=== PATIENT | female | born 1930 | race Caucasian/White ===

== ENCOUNTER 2018-03-30 01:54 | Inpatient (IN) | payer OTHER, MEDICARE ==
--- NOTE | 2018-03-30 02:57 | PDOC ---
History of Present Illness - General Chief Complaint: Rectal Bleed Stated Complaint: RECTAL BLEED Time Seen by Provider: 03/30/18 02:57 Past History - Travel Traveled outside of the country in the last 30 days: No Close contact w/someone who was outside of country & ill: No - Past Medical History Allergies/Adverse Reactions: Allergies Allergy/AdvReac Type Severity Reaction Status Date / Time No Known Allergies Allergy Verified 03/30/18 02:15 Home Medications: Ambulatory Orders Alendronate Sodium [Binosto] 70 mg PO WEEKLY 03/30/18 Atenolol [Tenormin] 25 mg PO DAILY 03/30/18 Atorvastatin Ca [Lipitor] 10 mg PO HS 03/30/18 Furosemide 20 mg PO DAILY 03/30/18 Levothyroxine [Synthroid -] 50 mcg PO DAILY 03/30/18 Nifedipine [Nifedipine ER] 60 mg PO DAILY 03/30/18 Solifenacin Succinate [Vesicare -] 10 mg PO DAILY 03/30/18 Warfarin Na [Coumadin] 1 mg PO ONCE 03/30/18 Warfarin Na [Coumadin] 4 mg PO DAILY 03/30/18 Anemia: Yes COPD: No HTN: Yes Hypercholesterolemia: Yes - Immunization History Immunization Up to Date: Yes - Suicide/Smoking/Psychosocial Hx Smoking Status: No Smoking History: Unknown if ever smoked Have you smoked in the past 12 months: No Number of Cigarettes Smoked Daily: 0 Information on smoking cessation initiated: No Hx Alcohol Use: No Drug/Substance Use Hx: No Substance Use Type: None Hx Substance Use Treatment: No Review of Systems - Review of Systems Able to Perform ROS?: Yes Is the patient limited Tanzanian proficient: No Constitutional: No: Symptoms Reported, See HPI, Chills, Diaphoresis, Fever, Loss of Appetite, Malaise, Night Sweats, Weakness, Weight Stable, Unintentional Wgt. Loss, Unexplained wgt Loss, Other HEENTM: No: Symptoms Reported, See HPI, Eye Pain, Blurred Vision, Tearing, Recent change in vision, Double Vision, Cataracts, Ear Pain, Ocular Prothesis, Ear Discharge, Nose Pain, Nose Congestion, Tinnitus, Nose Bleeding, Hearing Loss , Throat Pain, Throat Swelling, Mouth Pain, Dental Problems, Difficulty Swallowing, Mouth Swelling, Other Respiratory: No: Symptoms reported, See HPI, Cough, Orthopnea, Shortness of Breath, SOB with Exertion, SOB at Rest, Stridor, Wheezing, Productive cough, Hemoptysis, Other ABD/GI: Yes: Diarrhea, Rectal Bleeding, Abdominal cramping, Tarry Stools : No: Symptoms Reported, See HPI, Burning, Dysuria, Discharge, Frequency, Flank Pain, Hematuria, Incontinence, Pain, Urgency, Testicular Mass, Testicular Swelling, Lesions, Testicular Pain, Other Musculoskeletal: Yes: Muscle Weakness, Joint Stiffness. No: Symptoms Reported, See HPI, Back Pain, Gout, Joint Pain, Joint Swelling, Muscle Pain, Neck Pain, Other Integumentary: Yes: Bruising. No: Symptoms Reported, See HPI, Change in Color, Change in Hair/Nails, Dryness, Erythema, Flushing, Lesions, Lumps, Pallor, Pruritus, Rash, Sweating, Other Neurological: No: Symptoms reported, See HPI, Headache, Numbness, Paresthesia, Pre-Existing Deficit, Seizure, Tingling, Tremors, Weakness, Unsteady Gait, Ataxia, Dizziness, Other Psychiatric: No: Anxiety, Depression, Frequent Crying, Stressors, Sleep Pattern Change, Emotional Problems, Mood Swings, Change in Appetite, Other Hematologic/Lymphatic: Yes: Easy Bruising. No: Symptoms Reported, See HPI, Anemia, Blood Clots, Easy Bleeding, Bleeding Diathesis, Lymph Node Abnormalities , Swollen Glands, Other *Physical Exam - Vital Signs Last Vital Signs Temp Pulse Resp BP Pulse Ox 98.0 F 70 20 121/57 96 03/30/18 02:03 03/30/18 02:03 03/30/18 02:03 03/30/18 02:03 03/30/18 02:03 - Physical Exam General Appearance: Yes: Nourished, Appropriately Dressed. No: Apparent Distress HEENT: positive: EOMI, BOBBY, Normal ENT Inspection, Normal Voice, Symmetrical, TMs Normal, Pharynx Normal Neck: positive: Trachea midline, Supple Respiratory/Chest: positive: Lungs Clear, Normal Breath Sounds. negative: Respiratory Distress, Accessory Muscle Use Cardiovascular: positive: Regular Rhythm, Regular Rate, S1, S2 Female Pelvic Exam: positive: normal external exam. negative: discharge, lesions, Bartholin mass Gastrointestinal/Abdominal: positive: Normal Bowel Sounds, Flat, Soft. negative : Organomegaly, Pulsatile Mass Rectal Exam: positive: heme positive stool. negative: heme negative stool, normal exam Musculoskeletal: positive: Normal Inspection, CVA Tenderness Extremity: positive: Normal Capillary Refill, Normal Inspection, Normal Range of Motion, Pelvis Stable Integumentary: positive: Normal Color, Dry, Warm Neurologic: positive: out of town collection clerk II-XII NML intact, Fully Oriented, Alert, Normal Mood/ Affect, Normal Response ED Treatment Course - LABORATORY CBC & Chemistry Diagram: 03/30/18 03:41 03/30/18 03:41 Medical Decision Making - Medical Decision Making 03/30/18 06:36 Pt has ahd copious diarrrhea and bloody stool at home. In the ER she has bloody diaper. TRANSPORTATION PLANNER exam reveals that the blood is not coming from the vagina. Pt has guaiac positive stool and pt has INR of 3.57. We will hold a dose of coumadin today. Pt is stable hemodynamically; HB/HCT stable and she will be admitted to med surg for GI bleed. Hospitalist aware. *DC/Admit/Observation/Transfer Diagnosis at time of Disposition: Gastrointestinal bleed - Discharge Dispostion Condition at time of disposition: Guarded Decision to Admit order: Yes - Referrals - Patient Instructions - Post Discharge Activity
[2018-03-30 03:59] LABS: BASO % 0.4 % (0-2.0); EOS % 0.1 % (0-4.5); HEMATOCRIT 42.7 % (32.4-45.2); HEMOGLOBIN 13.9 GM/dL (10.7-15.3); LYMPH % 7.8 % (8-40); MCH 26.7 pg (25.7-33.7); MCHC 32.6 g/dl (32.0-36.0); MEAN CELL VOLUME 81.7 fl (80-96); MEAN PLT VOLUME 9.2 fl (7.5-11.1); NEUT % 86.7 % (42.8-82.8); PLATELET COUNT 373 K/MM3 (134-434); RBC 5.22 M/mm3 (3.60-5.2); RDW 14.8 % (11.6-15.6); WHITE BLOOD COUNT 21.8 K/mm3 (4.0-10.0)
[2018-03-30 04:25] LABS: INR 3.57 (0.83-1.09); PROTHROMBIN TIME (PATIENT) 40.3 SEC (9.7-13.0)
[2018-03-30 04:26] LABS: ALBUMIN 3.1 g/dl (3.4-5.0); ANION GAP 7 MMOL/L (8-16); BILIRUBIN,TOTAL 0.4 mg/dL (0.2-1.0); BLOOD UREA NITROGEN 23 mg/dL (7-18); CALCIUM 9.1 mg/dL (8.5-10.1); CHLORIDE 107 mmol/L (98-107); CO2 28 mmol/L (21-32); GLUCOSE,RANDOM 125 mg/dL (74-106); POTASSIUM 4.2 mmol/L (3.5-5.1); SGOT/AST 16 U/L (15-37); SGPT/ALT 16 U/L (12-78); SODIUM 142 mmol/L (136-145); TOT PROT 7.1 g/dl (6.4-8.2)
[2018-03-30 04:27] LABS: ALK PHOS 195 U/L (45-117)
[2018-03-30 06:01] LABS: ACANTHOCYTES 0; ANISOCYTOSIS 0; HELMET CELLS 0; HOWELL-JOLLY BODIES 0; MACROCYTOSIS 0; OVALOCYTE 0; PLATELET ESTIMATE INCREASED; ROULEAU 0; SICKELED CELLS 0; TARGET CELLS 0; TEAR DROP CELLS 0; TOXIC GRANULATION 0
--- NOTE | 2018-03-30 06:15 | HP ---
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 Who presents to the ED with her daughter for BRBPR and diarrhea x 1 day. Patient reports having a BM then seeing blood in the toilet. Patient denies straining, constipation, abdominal pain/cramping. Patient denies fever, chills, cough, dizziness, CP, palpitations, N/V, melena, hematuria, dysuria. History Source: Patient, Family Member Limitations to Obtaining History: No Limitations - Past Medical History Cardiovascular: Yes: Deep Vein Thrombosis, HTN, Hyperlipdemia. No: AFIB, CAD, CHF Gastrointestinal: Yes: Constipation, Diverticulosis, GI Bleed (resolved) Heme/Onc: Yes: Anemia (Hx) - Past Surgical History Additional Past Surgical History: [place] Filter - Smoking History Smoking history: Unknown if ever smoked Have you smoked in the past 12 months: No Aproximately how many cigarettes per day: 0 - Alcohol/Substance Use Hx Alcohol Use: No - Social History History of Recent Travel: No Home Medications - Allergies Allergies/Adverse Reactions: Allergies Allergy/AdvReac Type Severity Reaction Status Date / Time No Known Allergies Allergy Verified 03/30/18 02:15 - Home Medications Home Medications: Ambulatory Orders Alendronate Sodium [Binosto] 70 mg PO WEEKLY 03/30/18 Atenolol [Tenormin] 25 mg PO DAILY 03/30/18 Atorvastatin Ca [Lipitor] 10 mg PO HS 03/30/18 Furosemide 20 mg PO DAILY 03/30/18 Levothyroxine [Synthroid -] 50 mcg PO DAILY 03/30/18 Nifedipine [Nifedipine ER] 60 mg PO DAILY 03/30/18 Warfarin Na [Coumadin] 1 mg PO ONCE 03/30/18 Warfarin Na [Coumadin] 4 mg PO DAILY 03/30/18 Family Disease History - Family Disease History Family History: Unable to Obtain Review of Systems - Review of Systems Constitutional: reports: Weakness Eyes: reports: No Symptoms HENT: reports: No Symptoms Neck: reports: No Symptoms Cardiovascular: reports: No Symptoms Respiratory: reports: No Symptoms Gastrointestinal: reports: Diarrhea, Rectal Bleeding (BRB). denies: Abdominal Pain, Constipation, Melena, Nausea, Vomiting, Vomiting Blood Genitourinary: reports: No Symptoms. denies: Flank Pain, Frequency, Hematuria, Vaginal Bleeding Breasts: reports: No Symptoms Reported Musculoskeletal: reports: No Symptoms Integumentary: reports: No Symptoms Neurological: reports: No Symptoms Endocrine: reports: No Symptoms Hematology/Lymphatic: reports: No Symptoms Psychiatric: reports: No Symptoms Physical Examination Vital Signs: Vital Signs Temperature 98.0 F 03/30/18 02:03 Pulse Rate 70 03/30/18 02:03 Respiratory Rate 20 03/30/18 02:03 Blood Pressure 121/57 03/30/18 02:03 O2 Sat by Pulse Oximetry (%) 96 03/30/18 02:03 Constitutional: Yes: No Distress, Calm, Obese Eyes: Yes: WNL, Conjunctiva Clear, EOM Intact, PERRL HENT: Yes: WNL, Atraumatic, Normocephalic Neck: Yes: WNL, Supple, Trachea Midline Cardiovascular: Yes: WNL, Regular Rate and Rhythm, S1, S2 Respiratory: Yes: WNL, Regular, CTA Bilaterally Gastrointestinal: Yes: Soft, Abdomen, Obese, Hyperactive Bowel Sounds ...Rectal Exam: Yes: Guaiac Positive Renal/: Yes: WNL Breast(s): Yes: WNL Musculoskeletal: Yes: Muscle Weakness Extremities: Yes: WNL Edema: No Peripheral Pulses WNL: Yes Neurological: Yes: WNL, Alert, Oriented, Cran Nerves II-XII Intact ...Motor Strength: WNL Psychiatric: Yes: WNL, Alert, Oriented Labs: CBC, BMP 03/30/18 03:41 03/30/18 03:41 Intake & Output 03/27/18 03/28/18 03/29/18 03/30/18 23:59 23:59 23:59 23:59 Weight 65.771 kg Laboratory Results - last 24 hr 03/30/18 03/30/18 03/30/18 03:41 03:41 03:41 WBC 21.8 H RBC 5.22 H Hgb 13.9 Hct 42.7 D MCV 81.7 MCH 26.7 MCHC 32.6 RDW 14.8 Plt Count 373 MPV 9.2 D Absolute Neuts (auto) 18.9 H Neutrophils % 86.7 H Neutrophils % (Manual) 87.4 H Band Neutrophils % 0.0 Lymphocytes % 7.8 L D Lymphocytes % (Manual) 8.7 Monocytes % 5.0 Monocytes % (Manual) 3 L Eosinophils % 0.1 D Eosinophils % (Manual) 0.0 Basophils % 0.4 D Basophils % (Manual) 0.0 Myelocytes % (Man) 0 Promyelocytes % (Man) 0 Blast Cells % (Manual) 0 Nucleated RBC % 0 Metamyelocytes 1 Hypochromia 0 Toxic Granulation 0 Dohle Bodies 0 Platelet Estimate Increased Polychromasia 0 Poikilocytosis 0 Basophilic Stippling 0 Anisocytosis 0 Microcytosis 0 Macrocytosis 0 Spherocytes 0 Sickle Cells 0 Target Cells 0 Tear Drop Cells 0 Ovalocytes 0 Stomatocytes 0 Helmet Cells 0 [place] Bodies 0 [place] Rings 0 Miles Cells 0 Acanthocytes (Spur) 0 Rouleaux 0 Fragmented RBCs 0 Schistocytes 0 PT with INR INR PTT (Actin FS) 49.2 H Sodium 142 Potassium 4.2 Chloride 107 Carbon Dioxide 28 Anion Gap 7 L BUN 23 H Creatinine 1.0 Creat Clearance w eGFR 52.33 Random Glucose 125 H Calcium 9.1 Total Bilirubin 0.4 AST 16 ALT 16 Alkaline Phosphatase 195 H Total Protein 7.1 Albumin 3.1 L Stool Occult Blood Blood Type Antibody Screen 03/30/18 03/30/18 03/30/18 03:41 03:41 03:41 WBC RBC Hgb Hct MCV MCH MCHC RDW Plt Count MPV Absolute Neuts (auto) Neutrophils % Neutrophils % (Manual) Band Neutrophils % Lymphocytes % Lymphocytes % (Manual) Monocytes % Monocytes % (Manual) Eosinophils % Eosinophils % (Manual) Basophils % Basophils % (Manual) Myelocytes % (Man) Promyelocytes % (Man) Blast Cells % (Manual) Nucleated RBC % Metamyelocytes Hypochromia Toxic Granulation Dohle Bodies Platelet Estimate Polychromasia Poikilocytosis Basophilic Stippling Anisocytosis Microcytosis Macrocytosis Spherocytes Sickle Cells Target Cells Tear Drop Cells Ovalocytes Stomatocytes Helmet Cells [place] Bodies [place] Rings Inez Cells Acanthocytes (Spur) Rouleaux Fragmented RBCs Schistocytes PT with INR 40.30 H INR 3.57 H PTT (Actin FS) Sodium Potassium Chloride Carbon Dioxide Anion Gap BUN Creatinine Creat Clearance w eGFR Random Glucose Calcium Total Bilirubin AST ALT Alkaline Phosphatase Total Protein Albumin Stool Occult Blood Positive Blood Type O POSITIVE Antibody Screen Negative Imaging - Results Chest X-ray: Pending EKG: Image Reviewed (NSR no ST or TWI) Problem List - Problems (1) Gastrointestinal bleed Assessment/Plan: - stable - Likely diverticular vs medication vs hemorrhoid - Admit to Tele - stool occult positive - Appreciate GI Consult - IVF - NPO - Monitor vitals Code(s): K92.2 - GASTROINTESTINAL HEMORRHAGE, UNSPECIFIED (2) Bright red blood per rectum Assessment/Plan: - See Above Code(s): K62.5 - HEMORRHAGE OF ANUS AND RECTUM (3) HTN (hypertension) Assessment/Plan: - stable - Monitor BP - Continue home meds - Monitor renal function Code(s): I10 - ESSENTIAL (PRIMARY) HYPERTENSION (4) Hyperlipemia Assessment/Plan: - stable - Continue home med Code(s): E78.5 - HYPERLIPIDEMIA, UNSPECIFIED (5) Leukocytosis Assessment/Plan: - Likely secondary to inflammatory process vs infection - Will order Blood Cultures x2, Lactic Acid - Monitor CBC - Will hold off on ABX for now Code(s): D72.829 - ELEVATED WHITE BLOOD CELL COUNT, UNSPECIFIED Assessment/Plan 87 y/o woman Admitted to Telemetry for GI Bleeding for further evaluation of their emergent condition. Plan: FEN D51/2NS@42ml/hr Replete lytes prn NPO DVT ppx OOB SCDs Hold AC secondary to GI Bleeding Code Status: Full Code Dispo: Requires Inpatient Care Visit type - Emergency Visit Emergency Visit: Yes ED Registration Date: 03/30/18 Care time: The patient presented to the Emergency Department on the above date and was hospitalized for further evaluation of their emergent condition. - New Patient This patient is new to me today: Yes Date on this admission: 03/30/18 - Critical Care Critical Care patient: No Hospitalist Screening - Colonoscopy Questionnaire Colonoscopy Questionnaire: Colonoscopy Questionnaire - Patient: 50 - 75 years old and never had a screening colonoscopy: No History of colon or rectal polyps, or CA: No History of IBD, Crohn's disease or UC: No History of abdominal radiation therapy as a child: No - Relative: 1 with colon or rectal CA, or polyps at age 60 or younger: No Colon or rectal CA diagnosed at age 45 or younger: No Multiple relatives with colon or rectal CA: No - Outcome: Screening Result: Negative Screen
[2018-03-30] MEDS: DEXTROSE 5%-0.45% SALINE 1,000 ML IV SCH (06:40)
--- NOTE | 2018-03-30 10:42 | CON.GI ---
Consult Consult Specialty:: GI Referred by:: Radha Bhagat Reason for Consultation:: rectal bleeding - History of Present Illness Chief Complaint: Rectal bleeding, diarrhea History of Present Illness: 87 y.o. woman developed diarrhea 2 days ago. Last night she passed blood with her diarrhea. She has been on warfarin and admits that she is overdue for a check of her INR with her PCP, Dr Hayes. Was found to have INR>3.5 in early hours of this morning. Hct 42.7%, WBC 21,8. Denies fever, chills, recent antibiotic use. CBC,CMP WBC 21.8 K/mm3 (4.0-10.0) H 03/30/18 03:41 RBC 5.22 M/mm3 (3.60-5.2) H 03/30/18 03:41 Hgb 13.9 GM/dL (10.7-15.3) 03/30/18 03:41 Hct 42.7 % (32.4-45.2) D 03/30/18 03:41 MCV 81.7 fl (80-96) 03/30/18 03:41 MCH 26.7 pg (25.7-33.7) 03/30/18 03:41 MCHC 32.6 g/dl (32.0-36.0) 03/30/18 03:41 RDW 14.8 % (11.6-15.6) 03/30/18 03:41 Plt Count 373 K/MM3 (134-434) 03/30/18 03:41 MPV 9.2 fl (7.5-11.1) D 03/30/18 03:41 Absolute Neuts (auto) 18.9 K/mm3 (1.5-8.0) H 03/30/18 03:41 Neutrophils % 86.7 % (42.8-82.8) H 03/30/18 03:41 Neutrophils % (Manual) 87.4 % (42.8-82.8) H 03/30/18 03:41 Band Neutrophils % 0.0 % 03/30/18 03:41 Lymphocytes % 7.8 % (8-40) L D 03/30/18 03:41 Lymphocytes % (Manual) 8.7 % (8-40) 03/30/18 03:41 Monocytes % 5.0 % (3.8-10.2) 03/30/18 03:41 Monocytes % (Manual) 3 % (3.8-10.2) L 03/30/18 03:41 Eosinophils % 0.1 % (0-4.5) D 03/30/18 03:41 Eosinophils % (Manual) 0.0 % (0-4.5) 03/30/18 03:41 Basophils % 0.4 % (0-2.0) D 03/30/18 03:41 Basophils % (Manual) 0.0 % (0-2.0) 03/30/18 03:41 Myelocytes % (Man) 0 % (0-2) 03/30/18 03:41 Promyelocytes % (Man) 0 % (0-2) 03/30/18 03:41 Blast Cells % (Manual) 0 % (0-0) 03/30/18 03:41 Nucleated RBC % 0 % (0-0) 03/30/18 03:41 Metamyelocytes 1 % (0-2) 03/30/18 03:41 Hypochromia 0 03/30/18 03:41 Toxic Granulation 0 03/30/18 03:41 Dohle Bodies 0 03/30/18 03:41 Platelet Estimate Increased 03/30/18 03:41 Polychromasia 0 03/30/18 03:41 Poikilocytosis 0 03/30/18 03:41 Basophilic Stippling 0 03/30/18 03:41 Anisocytosis 0 03/30/18 03:41 Microcytosis 0 03/30/18 03:41 Macrocytosis 0 03/30/18 03:41 Spherocytes 0 03/30/18 03:41 Sickle Cells 0 03/30/18 03:41 Target Cells 0 03/30/18 03:41 Tear Drop Cells 0 03/30/18 03:41 Ovalocytes 0 03/30/18 03:41 Stomatocytes 0 03/30/18 03:41 Helmet Cells 0 03/30/18 03:41 [place] Bodies 0 03/30/18 03:41 [place] Rings 0 03/30/18 03:41 Miles Cells 0 03/30/18 03:41 Acanthocytes (Spur) 0 03/30/18 03:41 Rouleaux 0 09/02/18 03:41 Fragmented RBCs 0 03/30/18 03:41 Schistocytes 0 03/30/18 03:41 Sodium 142 mmol/L (136-145) 03/30/18 03:41 Potassium 4.2 mmol/L (3.5-5.1) 03/30/18 03:41 Chloride 107 mmol/L (98-107) 03/30/18 03:41 Carbon Dioxide 28 mmol/L (21-32) 03/30/18 03:41 Anion Gap 7 MMOL/L (8-16) L 03/30/18 03:41 BUN 23 mg/dL (7-18) H 03/30/18 03:41 Creatinine 1.0 mg/dL (0.55-1.02) 03/30/18 03:41 Creat Clearance w eGFR 52.33 (>60) 03/30/18 03:41 Random Glucose 125 mg/dL (74-106) H 03/30/18 03:41 Lactic Acid 1.5 mmol/L (0.0-2.0) 03/30/18 06:43 Calcium 9.1 mg/dL (8.5-10.1) 03/30/18 03:41 Total Bilirubin 0.4 mg/dL (0.2-1.0) 03/30/18 03:41 AST 16 U/L (15-37) 03/30/18 03:41 ALT 16 U/L (12-78) 03/30/18 03:41 Alkaline Phosphatase 195 U/L (45-117) H 03/30/18 03:41 Total Protein 7.1 g/dl (6.4-8.2) 03/30/18 03:41 Albumin 3.1 g/dl (3.4-5.0) L 03/30/18 03:41 - Past Medical History Cardio/Vascular: Yes: Deep Vein Thrombosis, HTN, Hyperlipdemia. No: AFIB, CAD, CHF Gastrointestinal: Yes: Constipation, Diverticulosis, GI Bleed (resolved) - Alcohol/Substance Use Hx Alcohol Use: No - Smoking History Smoking history: Unknown if ever smoked Have you smoked in the past 12 months: No Aproximately how many cigarettes per day: 0 - Social History History of Recent Travel: No Home Medications - Allergies Allergies/Adverse Reactions: Allergies Allergy/AdvReac Type Severity Reaction Status Date / Time No Known Allergies Allergy Verified 03/30/18 02:15 - Home Medications Home Medications: Ambulatory Orders Alendronate Sodium [Binosto] 70 mg PO WEEKLY 03/30/18 Atenolol [Tenormin] 25 mg PO DAILY 03/30/18 Atorvastatin Ca [Lipitor] 10 mg PO HS 03/30/18 Furosemide 20 mg PO DAILY 03/30/18 Levothyroxine [Synthroid -] 50 mcg PO DAILY 03/30/18 Nifedipine [Nifedipine ER] 60 mg PO DAILY 03/30/18 Warfarin Na [Coumadin] 1 mg PO ONCE 03/30/18 Warfarin Na [Coumadin] 4 mg PO DAILY 03/30/18 Physical Exam-GI Vital Signs: Vital Signs Temperature 98.5 F 03/30/18 07:12 Pulse Rate 88 03/30/18 07:12 Respiratory Rate 19 03/30/18 07:12 Blood Pressure 124/68 03/30/18 07:12 O2 Sat by Pulse Oximetry (%) 96 03/30/18 02:03 ...Rectal Exam: Yes: Other (No masses. Small amount of stool admixed with blood. ) Labs: CBC, BMP 03/30/18 03:41 03/30/18 03:41 INR, PTT INR 3.57 (0.83-1.09) H 03/30/18 03:41 Problem List - Problems (1) Bright red blood per rectum Code(s): K62.5 - HEMORRHAGE OF ANUS AND RECTUM Assessment/Plan Lower GI bleed, probably diverticular, in context of supratherapeutic anticoagulation. Would repeat CBC as the elevated WBC is definitely of concern. Surprisingly she has no fever, pain, cough, or localizing findings to suggest infection other than the diarrhea which has subsided (last episode about 2 a.m. by her and her daughter's report - it is now 11 a.m.) Will allow low residue diet, also agree with holding warfarin.
[2018-03-30 12:14] VITALS: BMI 27.2
[2018-03-30 13:32] LABS: BASO % 0.6 % (0-2.0); EOS % 0.5 % (0-4.5); HEMATOCRIT 35.7 % (32.4-45.2); HEMOGLOBIN 11.3 GM/dL (10.7-15.3); LYMPH % 17.9 % (8-40); MCH 25.9 pg (25.7-33.7); MCHC 31.6 g/dl (32.0-36.0); MEAN PLT VOLUME 8.6 fl (7.5-11.1); PLATELET COUNT 289 K/MM3 (134-434); RBC 4.35 M/mm3 (3.60-5.2); RDW 14.9 % (11.6-15.6); WHITE BLOOD COUNT 14.8 K/mm3 (4.0-10.0)
--- NOTE | 2018-03-30 13:58 | PN ---
Progress Note (short form) - Note Progress Note: Pt seen/ examined chart reviewed comfortable did not come for regular f/u . last office visit - 11/13 coumadin held gi consult noted/ appreciated Vital Signs Temp 97.8 F 03/30/18 10:00 Pulse 65 03/30/18 10:00 Resp 20 03/30/18 10:00 BP 164/67 03/30/18 10:00 Pulse Ox 98 03/30/18 10:00 Intake & Output 03/29/18 03/30/18 03/30/18 23:59 11:59 23:59 Intake Total 250 Output Total 2 Balance 248 Weight 144 lb 1.6 oz Intake: Oral 250 Output: Urine 2 Void 2 Other: Voiding Method Toilet Toilet Bowel Movement No Height 5 ft 1 in Body Mass Index (BMI) 27.2 Weight Measurement Method [facility] Measurement Method Est/Stated by Patient Active Medications Atenolol (Tenormin -) 25 mg PO DAILY [facility] Atorvastatin Calcium (Lipitor -) 10 mg PO HS [facility] Furosemide (Lasix -) 20 mg PO DAILY [facility] Dextrose/Sodium Chloride (D5-1/2ns -) 1,000 mls @ 42 mls/hr IV ASDIR [facility] Last Admin: 03/30/18 06:40 Dose: 42 mls/hr Levothyroxine Sodium (Synthroid -) 50 mcg PO ACBK [facility] Nifedipine (Procardia Xl -) 60 mg PO DAILY [facility] CBC, BMP 03/30/18 13:20 03/30/18 03:41 Physical Examination Constitutional: Yes: No Distress. comfortable Eyes: Yes: Conjunctiva Clear Neck: Yes: Supple. no jvd Cardiovascular: Yes: Regular Rate and Rhythm Respiratory: Yes: CTA Bilaterally Gastrointestinal: Yes: Soft/ non tender. bs + Edema: No Neurological: Yes: Alert Psychiatric: Yes: Alert Assessment/Plan gi bleed coogulopathy other problems as listed monitor cbc liquid diet transfuse prn Problem List - Problems (1) Gastrointestinal bleed Code(s): K92.2 - GASTROINTESTINAL HEMORRHAGE, UNSPECIFIED (2) HTN (hypertension) Code(s): I10 - ESSENTIAL (PRIMARY) HYPERTENSION
[2018-03-30] MEDS ORDERED: PATIENT'S OWN MEDICATION (NON-FORMULARY) (Alendronate Sodium [Binosto] 70 MG) PO SCH (14:00)
[2018-03-30 18:34] LABS: HEMATOCRIT 32.5 % (32.4-45.2); HEMOGLOBIN 10.5 GM/dL (10.7-15.3); MCH 26.4 pg (25.7-33.7); MCHC 32.5 g/dl (32.0-36.0); MEAN CELL VOLUME 81.4 fl (80-96); MEAN PLT VOLUME 9.1 fl (7.5-11.1); PLATELET COUNT 271 K/MM3 (134-434); RBC 3.99 M/mm3 (3.60-5.2); RDW 14.6 % (11.6-15.6); WHITE BLOOD COUNT 12.3 K/mm3 (4.0-10.0)
[2018-03-30 21:20] LABS: URINE APPEARANCE CLOUDY; URINE BILIRUBIN NEGATIVE (<2.0 mg/dL); URINE COLOR YELLOW; URINE GLUCOSE (UA) NEGATIVE (NEGATIVE); URINE KETONE NEGATIVE (NEGATIVE); URINE NITRITE POSITIVE (NEGATIVE); URINE PROTEIN NEGATIVE (NEGATIVE); URINE UROBILINOGEN NEGATIVE mg/dL (0.2-1.0)
[2018-03-30 21:21] LABS: URINE LEUK ESTERASE 2+ (NEGATIVE)
[2018-03-30 21:26] LABS: EPI CELLS RARE /HPF (FEW); URINE BACTERIA RARE /hpf (NONE SEEN); URINE MUCUS RARE
[2018-03-30] MEDS: ATORVASTATIN CA 10 MG TABLET (FP) PO SCH (22:34)
[2018-03-31] MEDS: LEVOTHYROXINE NA 50 MCG TABLET (FP) PO SCH (06:13)
[2018-03-31] MEDS: DEXTROSE 5%-0.45% SALINE 1,000 ML IV SCH (06:13)
[2018-03-31 08:15] LABS: BASO % 0.4 % (0-2.0); EOS % 1.5 % (0-4.5); HEMATOCRIT 34.3 % (32.4-45.2); HEMOGLOBIN 11.1 GM/dL (10.7-15.3); LYMPH % 12.8 % (8-40); MCH 26.6 pg (25.7-33.7); MCHC 32.4 g/dl (32.0-36.0); MEAN CELL VOLUME 82.1 fl (80-96); MEAN PLT VOLUME 9.2 fl (7.5-11.1); MONO % 7.2 % (3.8-10.2); NEUT % 78.1 % (42.8-82.8); PLATELET COUNT 256 K/MM3 (134-434); RBC 4.18 M/mm3 (3.60-5.2); RDW 14.5 % (11.6-15.6); WHITE BLOOD COUNT 10.8 K/mm3 (4.0-10.0)
[2018-03-31 08:17] LABS: ALBUMIN 2.5 g/dl (3.4-5.0); ANION GAP 8 MMOL/L (8-16); BLOOD UREA NITROGEN 12 mg/dL (7-18); CALCIUM 8.6 mg/dL (8.5-10.1); CHLORIDE 111 mmol/L (98-107); CO2 25 mmol/L (21-32); CREATININE 0.5 mg/dL (0.55-1.02); GLUCOSE,RANDOM 92 mg/dL (74-106); SGOT/AST 14 U/L (15-37); SGPT/ALT 12 U/L (12-78); SODIUM 144 mmol/L (136-145)
[2018-03-31 08:19] LABS: ALK PHOS 149 U/L (45-117); BILIRUBIN,TOTAL 0.5 mg/dL (0.2-1.0); TOT PROT 5.2 g/dl (6.4-8.2)
[2018-03-31 08:23] LABS: INR 2.45 (0.83-1.09); PROTHROMBIN TIME (PATIENT) 27.7 SEC (9.7-13.0)
--- NOTE | 2018-03-31 10:13 | PN ---
Progress Note (short form) - Note Progress Note: WBC down to 10K, Hgb fell to about 11 and holding steady. INR 2.45 today, now in upper end of therapeutic range. Passing old blood in stool. To advance diet today. I advised patient to have a colonoscopy in 6-8 weeks after she has recovered from this episode and her Hgb comes back to her baseline. If she has further gross bleeding with an INR in the therapeutic range we may be pushed to do it sooner. Problem List - Problems (1) Bright red blood per rectum Code(s): K62.5 - HEMORRHAGE OF ANUS AND RECTUM
[2018-03-31] MEDS: NIFEdipine E.R. 30 MG TABLET (FP) PO SCH (10:26)
[2018-03-31] MEDS: ATENOLOL 25 MG TABLET (FP) PO SCH (10:26)
[2018-03-31] MEDS: FUROSEMIDE 20 MG TABLET (FP) PO SCH (10:26)
--- NOTE | 2018-03-31 11:39 | PN ---
Progress Note (short form) - Note Progress Note: Comfortable passing small old blood denies pain inr coming down . h/h stable Vital Signs Temp 97.6 F 03/31/18 06:00 Pulse 54 L 03/31/18 06:00 Resp 20 03/31/18 06:00 BP 139/58 03/31/18 06:00 Pulse Ox 98 03/30/18 21:00 Intake & Output 03/30/18 03/30/18 03/31/18 11:59 23:59 11:59 Intake Total 702 800 Output Total 2 Balance 700 800 Weight 144 lb 1.6 oz Intake: IV 252 500 D5-1/2Ns - 1,000 ml @ 42 252 500 mls/hr IV ASDIR [facility] Rx#: [id number] Oral 450 300 Output: Urine 2 Void 2 Other: Voiding Method Toilet Toilet Toilet # Unmeasured Voids Void 3 Bowel Movement Yes Yes # Bowel Movements 2 Height 5 ft 1 in Body Mass Index (BMI) 27.2 Weight Measurement Method Built in [facility] Weight Measurement Method Est/Stated by Patient Active Medications Atenolol (Tenormin -) 25 mg PO DAILY [facility] Last Admin: 03/31/18 10:26 Dose: 25 mg Atorvastatin Calcium (Lipitor -) 10 mg PO HS [facility] Last Admin: 03/30/18 22:34 Dose: 10 mg Furosemide (Lasix -) 20 mg PO DAILY [facility] Last Admin: 03/31/18 10:26 Dose: 20 mg Dextrose/Sodium Chloride (D5-1/2ns -) 1,000 mls @ 42 mls/hr IV ASDIR [facility] Last Admin: 03/31/18 06:13 Dose: 42 mls/hr Levothyroxine Sodium (Synthroid -) 50 mcg PO ACBK [facility] Last Admin: 03/31/18 06:13 Dose: 50 mcg Nifedipine (Procardia Xl -) 60 mg PO DAILY [facility] Last Admin: 03/31/18 10:26 Dose: 60 mg CBC, BMP 03/31/18 07:15 03/31/18 07:15 Microbiology 03/30/18 06:43 Blood Culture - Preliminary Blood - Peripheral Venous NO GROWTH OBTAINED AFTER 24 HOURS, INCUBATION TO CONTINUE FOR 4 DAYS. 03/30/18 06:43 Blood Culture - Preliminary Blood - Peripheral Venous NO GROWTH OBTAINED AFTER 24 HOURS, INCUBATION TO CONTINUE FOR 4 DAYS. Physical Examination Constitutional: Yes: No Distress. comfortable Eyes: Yes: Conjunctiva Clear Neck: Yes: Supple. no jvd Cardiovascular: Yes: Regular Rate and Rhythm Respiratory: Yes: CTA Bilaterally Gastrointestinal: Yes: Soft/ non tender. bs + Edema: No Neurological: Yes: Alert Psychiatric: Yes: Alert Assessment/Plan stable d/c fluids advance diet oob - chair pt compliance stressed monitor cbc/ consider restarting coumadin with caution d/c planning- likely tomorrow if stable
--- NOTE | 2018-03-31 13:36 | EKG ---
Test Reason : Blood Pressure : / mmHG Vent. Rate : 064 BPM Atrial Rate : 064 BPM P-R Int : 148 ms QRS Dur : 076 ms QT Int : 428 ms P-R-T Axes : 078 000 033 degrees QTc Int : 441 ms NORMAL SINUS RHYTHM NORMAL ECG WHEN COMPARED WITH ECG OF 18-MAR-2014 11:20, NO SIGNIFICANT CHANGE WAS FOUND Confirmed by MALDONADO CARRENO MD ([id number]) on 03/31/2018 1:36:02 PM Referred By: Confirmed By:MALDONADO CARRENO MD
[2018-03-31] MEDS: ATORVASTATIN CA 10 MG TABLET (FP) PO SCH (21:53)
[2018-04-01] MEDS: LEVOTHYROXINE NA 50 MCG TABLET (FP) PO SCH (06:24)
[2018-04-01 08:50] LABS: HEMATOCRIT 35.2 % (32.4-45.2); HEMOGLOBIN 11.3 GM/dL (10.7-15.3); LYMPH % 18.7 % (8-40); MCH 26.4 pg (25.7-33.7); MCHC 32.2 g/dl (32.0-36.0); MEAN CELL VOLUME 82.2 fl (80-96); MONO % 5.7 % (3.8-10.2); NEUT % 72.6 % (42.8-82.8); PLATELET COUNT 300 K/MM3 (134-434); RBC 4.29 M/mm3 (3.60-5.2); RDW 14.6 % (11.6-15.6); WHITE BLOOD COUNT 10.2 K/mm3 (4.0-10.0)
[2018-04-01 09:16] LABS: INR 1.55 (0.83-1.09); PROTHROMBIN TIME (PATIENT) 17.5 SEC (9.7-13.0)
[2018-04-01] MEDS: NIFEdipine E.R. 30 MG TABLET (FP) PO SCH (09:59)
[2018-04-01] MEDS: FUROSEMIDE 20 MG TABLET (FP) PO SCH (09:59)
[2018-04-01] MEDS: ATENOLOL 25 MG TABLET (FP) PO SCH (09:59)
--- NOTE | 2018-04-01 12:53 | DS ---
Physical Examination Vital Signs: Vital Signs Temperature 98.5 F 04/01/18 09:00 Pulse Rate 72 04/01/18 10:15 Respiratory Rate 19 04/01/18 10:15 Blood Pressure 122/56 04/01/18 10:15 O2 Sat by Pulse Oximetry (%) 99 04/01/18 09:00 Constitutional: Yes: No Distress, Calm Cardiovascular: Yes: Regular Rate and Rhythm Respiratory: Yes: CTA Bilaterally Gastrointestinal: Yes: Normal Bowel Sounds, Soft. No: Tenderness Edema: No Labs: CBC, BMP 04/01/18 08:30 03/31/18 07:15 Discharge Summary Reason For Visit: GASTROINTESTINAL HEMORRHAGE;[employer] Current Active Problems Gastrointestinal bleed (Acute) Hospital Course: Admitted for b;eeing per ectum for one day- seen by DR Ramirez- Gi H/HCT stable Pt is on Coumadin for DVT-- s/p IVC filter No history of Afib, paroysmal Afib May need to consider dc Coumadin altogether stable for dc home will need Colonoscopy in 6-8 weeks per GI Condition: Good - Instructions Referrals: Capo Hayes MD [Primary Care Provider] - Delroy Ramirez MD [Staff Physician] - Disposition: HOME - Home Medications Comprehensive Discharge Medication List: Ambulatory Orders Alendronate Sodium [Binosto] 70 mg PO WEEKLY 03/30/18 Atenolol [Tenormin] 25 mg PO DAILY 03/30/18 Atorvastatin Ca [Lipitor] 10 mg PO HS 03/30/18 Furosemide 20 mg PO DAILY 03/30/18 Levothyroxine [Synthroid -] 50 mcg PO DAILY 03/30/18 Nifedipine [Nifedipine ER] 60 mg PO DAILY 03/30/18 Warfarin Na [Coumadin] 1 mg PO ONCE 03/30/18 Warfarin Na [Coumadin] 4 mg PO DAILY 03/30/18
[2018-04-01 22:37] VITALS: BP 115/60; PULSE 63; TEMP 98
== END 2018-04-01 20:15 | disposition home or self-care (01) | DRG 378 ==
LOC: JER 01:54 → JERBED 05:16 → J6S 09:16
PROVIDERS: ADMIT Internal Medicine; ATTEND Internal Medicine
DX: K62.5 Hemorrhage of anus and rectum (principal); D68.9 Coagulation defect, unspecified; I10 Essential (primary) hypertension; Z86.718 Personal history of other venous thrombosis and embolism; Z79.01 Long term (current) use of anticoagulants; E66.9 Obesity, unspecified; E78.5 Hyperlipidemia, unspecified; Z68.27 Body mass index [BMI] 27.0-27.9, adult; R19.7 Diarrhea, unspecified; D72.829 Elevated white blood cell count, unspecified
CPT/HCPCS: 36415; 71045-TC-FY; 80053; 81003; 81015; 82272; 83605; 85025; 85027; 85610; 85730; 86850; 86900; 86901; 87040; 87086; 87186; 93005; 93010; 97116-GP; 97161-GP; 99285-25